=== PATIENT | female | born 1960 | race Caucasian/White ===

== ENCOUNTER 2018-04-03 17:00 | Emergency (ER) | payer OTHER ==
[2018-04-03 17:05] VITALS: BMI 21.6
[2018-04-03 17:14] VITALS: BP 107/74; PULSE 68; TEMP 98.4
[2018-04-03] MEDS ORDERED: RABIES VACCINE (PCEC)/PF 2.5 UNIT/VIAL IM ONE (17:22)
--- NOTE | 2018-04-03 17:38 | PDOC ---
History of Present Illness - General Chief Complaint: Bite Stated Complaint: BAT BITE Time Seen by Provider: 04/03/18 17:10 History Source: Patient Exam Limitations: No Limitations - History of Present Illness Initial Comments: 04/03/18 17:33 58-year-old female no past medical history here today complaining of a bat bite. Patient was camping she was walking on a trauma dark suddenly a bat flew over her head absolutely the next day the patient noted that she had 2 punctate bite keene the back of her neck this happened 3 days prior to presentation. Patient has had previous rabies vaccination in 2009 and then subsequently had a booster received 3 years later when she called the [facility] today for guidance the instructed that she will need to rabies vaccine boosters. No fever no chills no other current complaints no redness around the area of the bite Past History - Past Medical History Allergies/Adverse Reactions: Allergies Allergy/AdvReac Type Severity Reaction Status Date / Time Sulfa (Sulfonamide Allergy Severe Hives Verified 04/03/18 17:01 Antibiotics) Home Medications: Ambulatory Orders Levothyroxine [Synthroid -] 125 mcg PO DAILY 01/15/16 Anemia: No Asthma: No Cancer: No Cardiac Disorders: No CVA: No COPD: No CHF: No Dementia: No Diabetes: No GI Disorders: No Disorders: No HTN: No Hypercholesterolemia: No Liver Disease: No Seizures: No Thyroid Disease: Yes - Surgical History Abdominal Surgery: Yes (INGUINAL HERNIA REPAIR AT 5 YEARS OF AGE) Appendectomy: No Cardiac Surgery: No Cholecystectomy: No Lung Surgery: No Neurologic Surgery: No Orthopedic Surgery: No - Suicide/Smoking/Psychosocial Hx Smoking History: Never smoked Have you smoked in the past 12 months: No Hx Alcohol Use: Yes Drug/Substance Use Hx: No Substance Use Type: Alcohol Hx Substance Use Treatment: No Review of Systems - Review of Systems Constitutional: No: Diaphoresis HEENTM: No: Eye Pain Respiratory: No: Cough Cardiac (ROS): No: Chest Pain, Edema Musculoskeletal: No: See HPI, Back Pain Neurological: No: Headache, Numbness, Paresthesia All Other Systems: Reviewed and Negative *Physical Exam - Vital Signs Last Vital Signs Temp Pulse Resp BP Pulse Ox 98.4 F 68 16 107/74 99 04/03/18 17:01 04/03/18 17:01 04/03/18 17:01 04/03/18 17:01 04/03/18 17:01 - Physical Exam General Appearance: Yes: Appropriately Dressed HEENT: positive: Normal ENT Inspection Neck: positive: Trachea midline Respiratory/Chest: positive: Lungs Clear, Normal Breath Sounds Cardiovascular: positive: Regular Rhythm, Regular Rate, S1, S2 Extremity: positive: Normal Capillary Refill, Normal Inspection Integumentary: positive: Normal Color, Dry, Warm, Other (2 small punctate wounds postertior upper back) Neurologic: positive: Fully Oriented, Alert, Normal Mood/Affect ED Treatment Course - Medications Given in the ED: ED Medications Discontinued Medications Generic Name Dose Route Start Last Admin Trade Name Freq PRN Reason Stop Dose Admin Rabies Vaccine 2.5 unit 04/03/18 17:22 04/03/18 17:32 Rabavert Rabies Vaccine IM 04/03/18 17:23 2.5 unit .ONCE ONE Administration Medical Decision Making - Medical Decision Making 04/03/18 17:35 Patient has been previously vaccinated for rabies we'll therefore give a booster. Due to the length of time since the most recent booster she will require to vaccinations today and on day 3 *DC/Admit/Observation/Transfer Diagnosis at time of Disposition: Rabies exposure - Discharge Dispostion Disposition: HOME Condition at time of disposition: Improved - Referrals Referrals: Kay Padgett [Primary Care Provider] - - Patient Instructions Printed Discharge Instructions: Rabies Vaccine Additional Instructions: He will need a second rabies vaccine on Monday, April 06 for a total of 2 vaccinations and then your series will be complete return for any fevers chills redness or any other concerns - Post Discharge Activity Forms/Work/School Notes: Rabies Vaccination F/U Reza.
== END 2018-04-03 17:41 | disposition home or self-care (01) ==
LOC: FER 17:00
PROC: 3E0234Z Introduction of Serum, Toxoid and Vaccine into Muscle, Percutaneous Approach (ICD-10-PCS; principal; 2018-04-03)
DX: Z23 Encounter for immunization (principal); Z20.3 Contact with and (suspected) exposure to rabies
CPT/HCPCS: 90675; 99282-25

== ENCOUNTER 2018-04-06 06:56 | Emergency (ER) | payer OTHER ==
[2018-04-06 07:04] VITALS: BP 121/82; PULSE 87; TEMP 99.6; BMI 21.6
[2018-04-06] MEDS ORDERED: RABIES VACCINE (PCEC)/PF 2.5 UNIT/VIAL IM ONE (07:08)
--- NOTE | 2018-04-06 07:11 | PDOC ---
History of Present Illness - General Chief Complaint: Revisit,Rabies Injection Stated Complaint: DUE FOR RABIES VACCINE Time Seen by Provider: 04/06/18 07:08 - History of Present Illness Initial Comments: 04/06/18 07:10 58 years old past medical history presents to complete his rabies vaccine boosters. Was camping that fluent her noticed 2 puncture keene had previous rabies vaccine in 2009 than a booster 3 years later per the CBC was instructed to receive 2 rabies vaccine boosters. Is here for second. No complaints at this time. Past History - Past Medical History Allergies/Adverse Reactions: Allergies Allergy/AdvReac Type Severity Reaction Status Date / Time Sulfa (Sulfonamide Allergy Severe Hives Verified 04/03/18 17:01 Antibiotics) Home Medications: Ambulatory Orders Levothyroxine [Synthroid -] 125 mcg PO DAILY 01/15/16 Anemia: No Asthma: No Cancer: No Cardiac Disorders: No CVA: No COPD: No CHF: No Dementia: No Diabetes: No GI Disorders: No Disorders: No HTN: No Hypercholesterolemia: No Liver Disease: No Seizures: No Thyroid Disease: Yes - Surgical History Abdominal Surgery: Yes (INGUINAL HERNIA REPAIR AT 5 YEARS OF AGE) Appendectomy: No Cardiac Surgery: No Cholecystectomy: No Lung Surgery: No Neurologic Surgery: No Orthopedic Surgery: No - Suicide/Smoking/Psychosocial Hx Smoking History: Never smoked Have you smoked in the past 12 months: No Hx Alcohol Use: Yes Drug/Substance Use Hx: No Substance Use Type: Alcohol Hx Substance Use Treatment: No Review of Systems - Review of Systems Comments:: 04/06/18 07:10 ROS: A complete review of 10 out of 10 review of systems is taken and is negative apart from what is previously mentioned below and in the HPI. *Physical Exam - Vital Signs Last Vital Signs Temp Pulse Resp BP Pulse Ox 99.6 F 87 16 121/82 97 04/06/18 07:00 04/06/18 07:00 04/06/18 07:00 04/06/18 07:00 04/06/18 07:00 - Physical Exam Comments: 04/06/18 07:10 Vitals: Triage Vital signs reviewed General Appearance: no acute distress, well nourished well developed, Head: Atraumatic, Neck: Supple;No Nucal rigidity Chest Wall: Nontender Cardiac: Regular rate and rhythym, no murmurs, no rubs, no gallops, Lungs: Clear to auscultation bilateral, good air movement bilaterally, Abdomen: Soft, non distended, normal bowel sounds, non tender to palpation Extremities: Full range of motion to all extremities, no cyanosis, clubbing, or edema Skin: Warm and dry, no rashes or lesions], [no rash], [no petechiae] Medical Decision Making - Medical Decision Making 04/06/18 07:10 Rabies vaccine booster completed Findings, the need for follow-up and strict return instructions discussed patient. *DC/Admit/Observation/Transfer Diagnosis at time of Disposition: Rabies exposure - Discharge Dispostion Disposition: HOME Condition at time of disposition: Stable Decision to Admit order: No - Referrals - Patient Instructions Printed Discharge Instructions: DI for Rabies Vaccine Additional Instructions: Follow-up with your doctor next week. Return to ED for any concerning symptoms - Post Discharge Activity
== END 2018-04-06 07:31 | disposition home or self-care (01) ==
LOC: FER 06:56
PROC: 3E0234Z Introduction of Serum, Toxoid and Vaccine into Muscle, Percutaneous Approach (ICD-10-PCS; principal; 2018-04-06)
DX: Z20.3 Contact with and (suspected) exposure to rabies (principal); Z23 Encounter for immunization
CPT/HCPCS: 90675; 99281-25